=== PATIENT | female | born 1995 | race Caucasian/White ===

== ENCOUNTER 2017-05-07 20:23 | Emergency (ER) | payer OTHER, SELFPAY ==
[~2017-05-07] VITALS: Ht 167.6 cm; Wt 60.9 kg
[2017-05-07 22:12] LABS: HEMATOCRIT 48.9 % (34.6-47.8); HEMOGLOBIN 16.2 g/dL (11.7-16.4); WHITE BLOOD COUNT 12.9 x10^3/uL (3.4-10)
[2017-05-07 22:27] LABS: ASPARTATE AMINO TRANSFERASE 28 U/L (15-37); BLOOD UREA NITROGEN 12 mg/dL (7-18)
[2017-05-07] MEDS ORDERED: GADOBUTROL 7.5 MMOL/7.5 ML PFS ONE (23:35)
[2017-05-08 01:29] VITALS: BP 128/68
== END 2017-05-08 01:31 | disposition home or self-care (01) ==
LOC: ED 22:45
DX: R51 Headache (principal); J01.20 Acute ethmoidal sinusitis, unspecified; J01.30 Acute sphenoidal sinusitis, unspecified
CPT/HCPCS: 36415; 70450; 70553; 71010; 80053; 81003; 84703; 85025; 99285; A9585